=== PATIENT | male | born 2000 | race Caucasian/White ===

== ENCOUNTER 2022-09-11 20:02 | Emergency (ER) | payer BC ==
[~2022-09-11] VITALS: Ht 160 cm; Wt 65.0 kg
== END 2022-09-11 21:21 | disposition left against medical advice (07) ==
LOC: ED 20:02
DX: B34.9 Viral infection, unspecified (principal); Z20.822 Contact with and (suspected) exposure to COVID-19
CPT/HCPCS: 36415; 71045; 80053; 81001; 83605; 85025; 87502; 87880; 96374; 96375; 99283-25; J1885; J2405; J7121; U0003